=== PATIENT | female | born 1980 | race Caucasian/White ===

== ENCOUNTER 2019-04-17 10:22 | Outpatient (CLI) | payer MEDICAID, OTHER ==
[~2019-04-17] VITALS: Ht 162.6 cm; Wt 75.3 kg
[~2019-04-17 10:22] MED LIST: PNV11TAB PO
[2019-04-17 10:32] VITALS: BP 104/72; PULSE 90; RESP 18; Ht 162.6 cm; Wt 75.3 kg
== END 2019-04-17 12:40 | disposition home or self-care (01) ==
LOC: L-D 10:22 → OBT 10:22
PROVIDERS: ATTEND Obstetrics & Gynecology
DX: O69.81X0 Labor and delivery complicated by cord around neck, without compression, not applicable or unspecified (principal); O09.523 Supervision of elderly multigravida, third trimester; Z3A.38 38 weeks gestation of pregnancy
CPT/HCPCS: 76818; Z7500; G0463